=== PATIENT | female | born 1965 | race Caucasian/White ===

== ENCOUNTER → 2016-07-04 | Day surgery (SDC) | payer BC, OTHER ==
[~2016-07-04] MED LIST: IBUPROFEN400 MG PO; NEXIUM40 MG PO
== END | disposition home or self-care (01) ==
LOC: OR 06:47
PROVIDERS: Internal Medicine Gastroenterology
PROC: 0DB68ZX Excision of Stomach, Via Natural or Artificial Opening Endoscopic, Diagnostic (ICD-10-PCS; principal; 2016-07-04 12:30)
DX: K29.50 Unspecified chronic gastritis without bleeding (principal); K21.9 Gastro-esophageal reflux disease without esophagitis; I10 Essential (primary) hypertension; I20.9 Angina pectoris, unspecified; J40 Bronchitis, not specified as acute or chronic; G89.29 Other chronic pain; M54.9 Dorsalgia, unspecified; M19.90 Unspecified osteoarthritis, unspecified site; Z79.1 Long term (current) use of non-steroidal anti-inflammatories (NSAID); Z82.49 Family history of ischemic heart disease and other diseases of the circulatory system; Z83.3 Family history of diabetes mellitus; Z79.899 Other long term (current) drug therapy; Z90.710 Acquired absence of both cervix and uterus; Z98.890 Other specified postprocedural states
CPT/HCPCS: J2250; J3010; J7030

== ENCOUNTER → 2016-07-25 | Outpatient (CLI) | payer BC, SELFPAY | LOC: RAD 13:37 | DX: M54.2 Cervicalgia (principal); M54.5 Low back pain; M51.36 Other intervertebral disc degeneration, lumbar region; M47.812 Spondylosis without myelopathy or radiculopathy, cervical region | CPT/HCPCS: 72050; 72110 ==

== ENCOUNTER → 2016-08-07 | Outpatient (CLI) | payer BC, SELFPAY | LOC: KOH-I 07-25 10:30 | DX: R10.11 Right upper quadrant pain (principal); R14.0 Abdominal distension (gaseous); N20.0 Calculus of kidney; K82.4 Cholesterolosis of gallbladder | CPT/HCPCS: 76705 ==

== ENCOUNTER → 2016-08-30 | Outpatient (CLI) | payer BC, SELFPAY | LOC: NM 08:00 | DX: R10.11 Right upper quadrant pain (principal) | CPT/HCPCS: 78227; A9537; J2805 ==

== ENCOUNTER → 2016-09-10 | Outpatient (CLI) | payer BC, SELFPAY | LOC: CT 09:28 | DX: R10.11 Right upper quadrant pain (principal); R11.0 Nausea; D37.6 Neoplasm of uncertain behavior of liver, gallbladder and bile ducts; K82.8 Other specified diseases of gallbladder; K76.9 Liver disease, unspecified | CPT/HCPCS: 74170; J7050; Q9962 ==

== ENCOUNTER 2020-10-31 13:54 | Emergency (ER) | payer OTHER ==
[2020-10-31] MEDS ORDERED: IBUPROFEN800 MG PO (15:17)
[2020-10-31] MEDS ORDERED: CYCLOBENZAPRINE10 MG PO (15:17)
== END 2020-10-31 18:13 | disposition home or self-care (01) ==
LOC: ER1 13:54
DX: S16.1XXA Strain of muscle, fascia and tendon at neck level, initial encounter (principal); M50.123 Cervical disc disorder at C6-C7 level with radiculopathy; Z90.710 Acquired absence of both cervix and uterus; Z79.899 Other long term (current) drug therapy; X50.0XXA Overexertion from strenuous movement or load, initial encounter
CPT/HCPCS: 72125; 96372; 99283; J1885; J2270; J3360

== ENCOUNTER → 2020-11-14 | Outpatient (CLI) | payer OTHER ==
[~2020-11-14] MED LIST changes: +CYCLOBENZAPRINE10 MG PO; +IBUPROFEN800 MG PO
== END ==
LOC: MRI 09:18
DX: M50.323 Other cervical disc degeneration at C6-C7 level (principal); M50.123 Cervical disc disorder at C6-C7 level with radiculopathy
CPT/HCPCS: 72141